=== PATIENT | male | born 1970 | race Caucasian/White ===

== ENCOUNTER → 2020-06-21 | Outpatient (CLI) | payer BC, MEDICARE, OTHER ==
[~2020-06-21] MED LIST: AMLODIPINE BESY10 MG PO; AMLODIPINE BESYL5 MG PO; ATORVASTATIN CA20 MG PO; CATAPRES0.2 MG PO; CEFUROXIME500 MG PO; CLONIDINE1 EAC1 TD; FLAGYL500 MG PO; GABAPENTIN400 MG PO; HYDRALAZINE HCL50 MG PO; HYDROCODON-ACE1 EAC6 PO; IBU800 MG PO; IBUPROFEN800 MG PO; K-DUR TAB 10 M10 MEQ PO; LASIX20 MG PO; LEVAQUIN500 MG PO; LEVOCETIRIZINE D5 MG PO; LISINOPRIL-HCT1 EAC2 PO; LISINOPRIL20 MG PO; LOPRESSOR 50 MG50 MG PO; LORCET HD 10-31 EACH PO; MIRALAX 119 GR119 GM PO; MIRALAX17 GM PO; MS CONTIN60 MG PO; NIFEDIPINE ER60 MG PO; OMEPRAZOLE40 MG PO; OXYCODONE HCL30 MG PO; OXYCONTIN30 MG PO; PERCOCET 10-321 EACH PO; PHENERGAN 12.12.5 M1 PO; PRILOSEC OTC20 MG PO; PRINIVIL20 MG PO; PROCARDIA XL60 MG PO; PROTONIX 40 MG40 M1 PO; PROTONIX40 MG PO; TIZANIDINE HCL4 M1 PO; XANAX1 MG PO; ZANAFLEX4 MG PO; ZOFRAN 4 MG TAB4 MG PO
== END ==
LOC: MRI 10:13
DX: M54.12 Radiculopathy, cervical region (principal); M47.022 Vertebral artery compression syndromes, cervical region; M48.02 Spinal stenosis, cervical region
CPT/HCPCS: 72141

== ENCOUNTER → 2020-07-21 | Outpatient (CLI) | payer BC, OTHER | LOC: KOH-I 08:30 | DX: M51.84 Other intervertebral disc disorders, thoracic region (principal) | CPT/HCPCS: 72125 ==

== ENCOUNTER → 2020-08-24 | Outpatient (CLI) | payer BC, MEDICARE, OTHER ==
[2020-08-24 10:24] LABS: RED BLOOD COUNT 5.04 M/UL (4.20-5.50); WHITE BLOOD COUNT 8.5 K/UL (4.5-11.0)
[2020-08-24 10:54] LABS: BUN/CREATININE RATIO 14 (0-10)
== END ==
LOC: OPSV2 09:00
PROVIDERS: Orthopaedic Surgery
DX: Z01.818 Encounter for other preprocedural examination (principal); M54.12 Radiculopathy, cervical region
CPT/HCPCS: ECHO; 71046; 80048; 81001; 85027; 85610; 85730; 87081; 93005; 93306

== ENCOUNTER → 2020-09-05 | Outpatient (CLI) | payer BC, MEDICARE, OTHER ==
[2020-09-05 14:10] LABS: BUN/CREATININE RATIO 15 (0-10)
== END ==
LOC: LAB 12:54
PROVIDERS: Orthopaedic Surgery
DX: Z01.812 Encounter for preprocedural laboratory examination (principal)
CPT/HCPCS: 80048; 80053; 86850; 86900; 86901

== ENCOUNTER 2020-09-06 06:00 | Day surgery (SDC) | payer BC, MEDICARE, OTHER ==
[~2020-09-06] VITALS: Ht 177.8 cm; Wt 112.0 kg
[2020-09-06] MEDS ORDERED: ZANAFLEX4 MG PO (13:40)
[2020-09-07 03:39] LABS: HEMOGLOBIN 13.2 gm/dl (14.0-17.5); RED BLOOD COUNT 4.25 M/UL (4.20-5.50); WHITE BLOOD COUNT 12.8 K/UL (4.5-11.0)
[2020-09-07 03:57] LABS: BUN/CREATININE RATIO 16 (0-10)
== END 2020-09-07 14:32 | disposition home or self-care (01) ==
LOC: OR 06:00 → CCU 13:55 → OR 09-07 14:32
PROVIDERS: Orthopaedic Surgery
DX: M54.12 Radiculopathy, cervical region (principal); M48.02 Spinal stenosis, cervical region; I10 Essential (primary) hypertension; F32.9 Major depressive disorder, single episode, unspecified; I25.2 Old myocardial infarction; Z86.16 Personal history of COVID-19; K21.9 Gastro-esophageal reflux disease without esophagitis; K44.9 Diaphragmatic hernia without obstruction or gangrene; F41.9 Anxiety disorder, unspecified
CPT/HCPCS: 36415; 72040; 72050; 76000; 80048; 85027; C1713; C1762; C1781; J0690; J1040; J1100; J1170; J2001; J2250; J2370; J2405; J2704; J3010; J3370; J7040; J7120